=== PATIENT | male | born 1990 | race Caucasian/White ===

== ENCOUNTER 2020-02-02 07:05 | Day surgery (SDC) ==
[2020-02-01 13:59] VITALS: BP 127/77
[2020-02-01 14:22] LABS: BASOPHIL % 0.3 % (0.0-0.2); EOSINOPHIL % 0.5 % (0.0-5.0); LYMPHOCYTES # 2.48 10^3/uL1 (1.0-4.8); MEAN CORP HGB 28.5 pg (26-34); MONOCYTES # 0.5 10^3/uL (0.3-0.8); MONOCYTES % 6.3 % (5.0-12.0); NEUTROPHIL # 4.7 10^3/uL (1.8-7.7); NEUTROPHILS % 60.8 % (41.0-85.0); PLATELET COUNT 273 10^3/uL (150-400); RED CELL DISTRIBUTION WIDTH 13.6 % (11.5-14.5)
[2020-02-01 14:29] LABS: CALCIUM 9.4 mg/dL (8.4-10.5); CARBON DIOXIDE 25.3 mmol/L (20.0-32)
[~2020-02-02] VITALS: Ht 185.4 cm; Wt 93.0 kg
[2020-02-02] VITALS (10 sets, daily range): BP systolic 112–147; BP diastolic 63–85
[~2020-02-02 07:05] MED LIST: LEVAQUIN 100 ML IV ONE; NS 1000ML 1,000 ML IV SCH
[2020-02-02] MEDS ORDERED: SODIUM CHLORIDE IRR BOTTLE IR ONE (07:25)
[2020-02-02] MEDS ORDERED: LIDOCAINE 2% VIAL ONE (07:29)
[2020-02-02] MEDS ORDERED: DECADRON ONE (07:30)
[2020-02-02] MEDS ORDERED: TORADOL ONE (07:30)
[2020-02-02] MEDS ORDERED: ZOFRAN ONE (07:30)
[2020-02-02] MEDS ORDERED: VERSED ONE (07:30)
[2020-02-02] MEDS ORDERED: SUBLIMAZE ONE (07:31)
[2020-02-02] MEDS ORDERED: DIPRIVAN IV ONE (07:31)
[2020-02-02] MEDS ORDERED: LEVO500T8 PO (09:07)
[2020-02-02] MEDS ORDERED: TRAM50TA PO (09:07)
--- NOTE | 2020-02-02 09:14 | OPH ---
DATE OF SURGERY: 02/02/2020 PREOPERATIVE DIAGNOSIS: Left hydrocele. FINAL DIAGNOSIS: Left hydrocele. PROCEDURE: Left hydrocelectomy. DESCRIPTION OF PROCEDURE: The patient was brought to the operating room, was put in supine position on the operating room table. After the patient was given a satisfactory and adequate LMA general anesthesia, the genitalia was then prepped and draped aseptically in the usual manner. First, a transverse incision was then done in the left hemiscrotal region. Incision was deepened through subcutaneous tissue. All bleeders were clamped and fulgurated. By blunt and sharp dissection, the area of the left scrotal region was then dissected and after that, the hydrocele was led out of the left hemiscrotal sac. All bleeders again were clamped and fulgurated. The hydrocele sac was opened and the fluid was then suctioned. The hydrocele sac was then excised, flushed near the border of the testis and epididymis and the area was then fulgurated for hemostasis. A running suture of 2-0 chromic catgut was then done at the edges of the hydrocele sac and after all adequate hemostasis, the rest of the area was inspected and there was no bleeding noted. The left testis was then put back in its normal anatomical position in the left hemiscrotal sac and the scrotal skin incision was then approximated in 2 layers with the use of 2-0 chromic catgut; first in a continuous suture and subcutaneous tissue and then the skin was done by interrupted sutures of 2-0 chromic catgut. After that, procedure was terminated. There was no bleeding noted. The area was then cleaned and then a dressing with scrotal support was then placed in the area of the left scrotum. The patient was awakened and transferred to the recovery room in stable condition. Quentin Quiñonez MD DR: ANTONIO/latrell JOB# [id number]
[2020-02-02] MEDS ORDERED: EPHEDRINE SULFATE IV PRN (09:30)
[2020-02-02] MEDS ORDERED: LACTATED RINGERS 1,000 ML IV SCH (09:30)
[2020-02-02] MEDS ORDERED: ZOFRAN IV PRN (09:30)
[2020-02-02] MEDS ORDERED: VENTOLIN IH PRN (09:30)
[2020-02-02] MEDS ORDERED: NORCO 7.5MG PO PRN (09:30)
[2020-02-02] MEDS ORDERED: TRANDATE IV PRN (09:30)
[2020-02-02] MEDS ORDERED: BENADRYL IV PRN (09:30)
[2020-02-02] MEDS ORDERED: DILAUDID IV PRN (09:30)
== END 2020-02-02 10:40 | disposition home or self-care (01) ==
LOC: SDC 07:05
PROVIDERS: ATTEND Urology
DX: N43.3 Hydrocele, unspecified (principal); Z82.3 Family history of stroke; Z82.5 Family history of asthma and other chronic lower respiratory diseases; Z88.8 Allergy status to other drugs, medicaments and biological substances; Z82.0 Family history of epilepsy and other diseases of the nervous system; Z90.89 Acquired absence of other organs; Z98.890 Other specified postprocedural states; Z79.899 Other long term (current) drug therapy
CPT/HCPCS: 36415; 55040; 80048; 85025; 85610; 85730; A4217; J1100; J1885; J1956; J2001; J2250; J2405; J3010; J3490; J7030